=== PATIENT | male | born 1980 | race Caucasian/White ===

== ENCOUNTER 2025-09-07 23:58 | Emergency (ER) | payer MEDICAID ==
[~2025-09-07] VITALS: Ht 170.2 cm; Wt 90.7 kg
[2025-09-08] MEDS: IV NORMAL SALINE 1000 ML BAG IV ONE (00:15)
[2025-09-08] MEDS ORDERED: LIDOCAINE 2% (GLYDO= UROJET) 10 ML JELLY MM ONE (00:15)
[2025-09-08 00:32] LABS: PLATELET COUNT (AUTO) 270 K/uL (152-348); RED BLOOD CELL COUNT(AUTO) 4.72 MIL/uL (4.06-5.63); RED CELL DISTRIBUTION WIDTH 12.2 % (12.1-16.2); WHITE BLOOD COUNT (AUTO) 9.2 K/uL (3.6-10.2)
[2025-09-08 00:39] LABS: CREATININE 1.3 mg/dL (0.6-1.3); SODIUM SERUM 139 mmol/L (136-145); UREA NITROGEN, BLOOD 19 mg/dL (7-18)
[2025-09-08 00:45] LABS: ASPARTATE AMINOTRANSFERASE 114 U/L (15-37); TOTAL PROTEIN, SERUM 7.3 g/dL (6.4-8.2)
[2025-09-08 00:46] LABS: ETHANOL 99.0 MG/DL (0-10)
[2025-09-08] MEDS ORDERED: LABETALOL HCL 100 MG/20 ML VIAL IV ONE (01:15)
[2025-09-08 01:54] LABS: *BILIRUBIN,URIN NEGATIVE (NEGATIVE); *CLARITY,URINE CLEAR (CLEAR); *COLOR,URINE YELLOW (YELLOW); *KETONES,URINE NEGATIVE (NEGATIVE); *PROTEIN,URINE 2+ (NEGATIVE); *UROBILINOGEN,URINE 0.2 E.U./dl (NORMAL); LEUKOCYTE ESTERASE ,URINE NEGATIVE (NEGATIVE); NITRITE, URINE NEGATIVE (NEGATIVE); UGLUCOSE NEGATIVE (NEGATIVE)
[2025-09-08 01:56] LABS: *BLOOD, URINE TRACE (NEGATIVE)
[2025-09-08 02:00] VITALS: BP 140/111
[2025-09-08 02:02] LABS: *AMPHETAMINE, URINE NEGATIVE (NEGATIVE); *BARBITURATE, URINE NEGATIVE (NEGATIVE); *BENZODIAZEPINE, URINE NEGATIVE (NEGATIVE); *CANNABINOID, URINE POSITIVE (NEGATIVE); *COCCAINE, URINE POSITIVE (NEGATIVE); *OPIATE, URINE NEGATIVE (NEGATIVE); *PHENCYCLIDINE SCREEN,URINE NEGATIVE (NEGATIVE); FENTANYL, URINE POSITIVE (NEGATIVE)
[2025-09-08 03:22] VITALS: BP 133/100; O2SAT 94
== END 2025-09-08 02:40 | disposition home or self-care (01) ==
LOC: ER 09-08 00:03
DX: T40.411A Poisoning by fentanyl or fentanyl analogs, accidental (unintentional), initial encounter (principal); F14.129 Cocaine abuse with intoxication, unspecified; R06.00 Dyspnea, unspecified; I45.9 Conduction disorder, unspecified; X58.XXXA Exposure to other specified factors, initial encounter; Y93.89 Activity, other specified; Y92.89 Other specified places as the place of occurrence of the external cause; Y99.8 Other external cause status
CPT/HCPCS: 80076; 80048; 81001; 85025; 84484; 36415; 93005; 71045; 99291; 96360; 80299; 80320; 80307; J7040; A4606; A4663; G0480